=== PATIENT | male | born 1930 | race Caucasian/White ===

== ENCOUNTER 2017-04-28 20:30 | Outpatient (CLI) | payer MEDICARE | END 2017-04-28 20:31 | disposition home or self-care (01) | LOC: SLEEPLAB 20:30 | PROVIDERS: ATTEND Family Medicine | DX: G47.00 Insomnia, unspecified (principal); G47.33 Obstructive sleep apnea (adult) (pediatric); I10 Essential (primary) hypertension; R06.83 Snoring | CPT/HCPCS: 95810 ==

== ENCOUNTER 2017-05-26 19:30 | Outpatient (CLI) | payer MEDICARE | END 2017-05-26 19:31 | disposition home or self-care (01) | LOC: SLEEPLAB 19:30 | PROVIDERS: ATTEND Family Medicine | DX: G47.33 Obstructive sleep apnea (adult) (pediatric) (principal); G47.61 Periodic limb movement disorder; I10 Essential (primary) hypertension | CPT/HCPCS: 95811 ==